=== PATIENT | male | born 1960 | race Two or more races ===

== ENCOUNTER 2023-10-11 08:45 | Inpatient (IN) | payer OTHER ==
[~2023-10-11] VITALS: Ht 190.5 cm; Wt 88.9 kg
[2023-10-11 12:48] LABS: HEMOGLOBIN 13.7 g/dL (13-16.00); MEAN CELL VOLUME 96.3 fL (80.0-100.00); MEAN CORPUSCULAR HGB CONC 34.3 g/dl (32.0-36.0); PLATELET COUNT 231 K/uL (150-450); RED BLOOD COUNT 4.15 M/uL (4.00-6.00); RED CELL DISTRIBUTION WIDTH 13.3 % (11.5-14.5)
[2023-10-11 12:52] LABS: URINE APPEARANCE Clear; URINE BILIRRUBIN Negative (NEGATIVE); URINE BLOOD Negative; URINE COLOR Yellow; URINE GLUCOSE Negative (NEGATIVE); URINE LEUKOCYTE Negative; URINE NITRATE Negative; URINE PROTEIN Trace (NEGATIVE); URINE UROBILINOGEN 0.2 E.U./dl
[2023-10-11 12:53] LABS: URINE BACTERIA 8.8 uL (0.0-1933); URINE WBC 1.8 uL (0.0-23.2)
[2023-10-11 13:00] LABS: URINE EPITHELIAL CELLS 0.9 uL (0.0-38.8); URINE RBC 0.7 uL (0.0-20.8)
[2023-10-11 13:05] LABS: INR 1.02; PARTIAL THROMBOPLASTIN TIME 27.6 SECONDS (22.0-34.0); PROTHROMBIN TIME 10.7 SECONDS (9.0-11.5)
[2023-10-11 13:09] LABS: CALCIUM 9.8 mg/dL (8.5-10.1); CREATININE SERUM 1.47 mg/dL (0.70-1.30); GFR 48.08; POTASSIUM 4.28 mEq/L (3.5-5.1)
[2023-10-11] MEDS ORDERED: GLUMETZA500 MG (13:45)
[2023-10-11] MEDS ORDERED: GLIPIZIDE XL2.5 MG (13:47)
[2023-10-11] MEDS ORDERED: GRALISE600 MG (13:47)
[2023-10-11] MEDS ORDERED: PLAVIX75 MG (13:48)
[2023-10-11] MEDS ORDERED: ATORVALIQ20 MG/5 ML (13:49)
[2023-10-11] MEDS ORDERED: ASA-BUTALB-CAF1 EACH (13:49)
[2023-10-11] MEDS ORDERED: CHILDREN'S ASPI81 MG (13:53)
[2023-10-13 07:16] LABS: ALBUMIN 2.9 gm/dL (3.4-5.0); CALCIUM 8.1 mg/dL (8.5-10.1); CREATININE SERUM 1.76 mg/dL (0.70-1.30); GFR 39.06; PHOSPHOROUS 3.4 mg/dL (2.5-4.9); POTASSIUM 5.52 mEq/L (3.5-5.1)
[2023-10-13 12:11] LABS: HEMATOCRIT 27.8 % (39.0-48.0); MEAN CORPUSCULAR HGB CONC 34.9 g/dl (32.0-36.0); PLATELET COUNT 155 K/uL (150-450); RED BLOOD COUNT 2.84 M/uL (4.00-6.00); RED CELL DISTRIBUTION WIDTH 12.5 % (11.5-14.5)
[2023-10-13 12:14] LABS: HEMOGLOBIN 9.7 g/dL (13-16.00); MEAN CORPUSCULAR HEMOGLOBIN 34.1 pg (27.00-32.0)
[2023-10-13 12:45] LABS: ALBUMIN 2.9 gm/dL (3.4-5.0); CALCIUM 8.2 mg/dL (8.5-10.1); CREATININE SERUM 1.87 mg/dL (0.70-1.30); GFR 36.42; PHOSPHOROUS 2.6 mg/dL (2.5-4.9); POTASSIUM 4.63 mEq/L (3.5-5.1)
[2023-10-14 01:16] LABS: HEMATOCRIT 24.6 % (39.0-48.0); HEMOGLOBIN 8.6 g/dL (13-16.00); MEAN CELL VOLUME 96.1 fL (80.0-100.00); MEAN CORPUSCULAR HEMOGLOBIN 33.5 pg (27.00-32.0); MEAN CORPUSCULAR HGB CONC 34.9 g/dl (32.0-36.0); PLATELET COUNT 146 K/uL (150-450); RED BLOOD COUNT 2.56 M/uL (4.00-6.00); RED CELL DISTRIBUTION WIDTH 12.9 % (11.5-14.5)
[2023-10-14 01:42] LABS: CALCIUM 6.9 mg/dL (8.5-10.1); CREATININE SERUM 1.6 mg/dL (0.70-1.30); GFR 43.6; POTASSIUM 3.97 mEq/L (3.5-5.1)
[2023-10-14 12:33] LABS: HEMATOCRIT 29.2 % (39.0-48.0); MEAN CELL VOLUME 98.1 fL (80.0-100.00); MEAN CORPUSCULAR HEMOGLOBIN 33.5 pg (27.00-32.0); MEAN CORPUSCULAR HGB CONC 34.2 g/dl (32.0-36.0); PLATELET COUNT 180 K/uL (150-450); RED BLOOD COUNT 2.98 M/uL (4.00-6.00); RED CELL DISTRIBUTION WIDTH 12.6 % (11.5-14.5)
== END 2023-10-14 19:10 | disposition home or self-care (01) | DRG 708 ==
LOC: O/R 10-12 05:30 → SURG 10-12 05:30
PROVIDERS: ADMIT Urology; ATTEND Urology
PROC: 07BC4ZZ Excision of Pelvis Lymphatic, Percutaneous Endoscopic Approach (ICD-10-PCS; 2023-10-12)
PROC: 8E0W4CZ Robotic Assisted Procedure of Trunk Region, Percutaneous Endoscopic Approach (ICD-10-PCS; 2023-10-12)
PROC: 0VT04ZZ Resection of Prostate, Percutaneous Endoscopic Approach (ICD-10-PCS; principal; 2023-10-12 10:20)
DX: C61 Malignant neoplasm of prostate (principal); R59.0 Localized enlarged lymph nodes